=== PATIENT | female | born 1970 ===

== ENCOUNTER → 2021-06-09 13:39 | Outpatient (ROUT) | payer OTHER, SELFPAY ==
[2021-06-09 14:06] LABS: COVID19 -Nasal RAPID Negative (Negative)
== END ==
PROVIDERS: Visit Provider Family Medicine
DX: R05 Cough (principal); R09.89 Other specified symptoms and signs involving the circulatory and respiratory systems; Z20.822 Contact with and (suspected) exposure to COVID-19
CPT/HCPCS: 87635